=== PATIENT | female | born 1965 | race Caucasian/White ===

== ENCOUNTER 2024-09-05 10:43 | Emergency (ER) | payer BC, SELFPAY ==
[2024-09-05 10:53] VITALS: BP 158/79
[2024-09-05 11:31] VITALS: BMI 37.9
[2024-09-05 11:35] VITALS: BP 137/72
--- NOTE | 2024-09-05 11:35 | ED.GENMED ---
History of Present Illness
General
Chief Complaint: Cold/Flu/URI Symptoms
Source: patient
Time Seen by Provider: 09/05/24 11:10
History of Present Illness
History of Present Illness:
59-year-old female with past medical history of asthma, hyperlipidemia, GERD, [id number] diabetes presenting to the emergency department for evaluation at the request of her primary care provider for an acute asthma exacerbation. Patient
notes for the last 2 weeks she has been dealing with URI-like symptoms, was given a prescription for doxycycline for which she has 2 days remaining and a prednisone taper for which she only has today remaining but still notes considerable wheezing,
cough and shortness of breath. Patient denies any fevers associated with this. She notes no recent admissions or hospitalizations due to asthma. She normally notes asthma is relatively under control and normally has exacerbations with weather or
cold-like symptoms. Social history was noted for tobacco use. No other concerns presently.
Past History
Past History
ED Past Medical History: Asthma, GERD, Hypercholesterolemia and NIDDM; Negative CAD, HTN or IDDM
ED Past Surgical History: Cholecystectomy and Gynecological
Social History
Tobacco: Smoker
Alcohol: Occasional
Drug: None
Personal:
Living: with family
Employment: Employed
Family History
Family History: Early CAD (Brother with NC in his 40s, father with NC in his 60s )
Review of Systems
Review of Systems
All Other Systems: ROS reviewed and negative except as documented in HPI and ROS
Phy Exam
Physical Exam
Physical Exam:
GENERAL: Alert , in no apparent distress
EYE: conjunctiva clear
NECK: Supple, no significant adenopathy.
ENT: o/p clr, mmm.
CARDIAC: Regular rate and rhythm, no murmur
LUNGS: diffuse inspiratory and expiratory wheezing, speaking full sentences, no accessory muscle use or tachypnea
NEUROLOGICAL: Alert and oriented
SKIN: Warm and dry, skin intact.
MUSCULOSKELETAL: well perfused.
PSYCH: Normal and appropriate interaction.
Scores
Heart Failure Risk
Heart Failure Risk Score: Not Applicable
Heart Score for Chest Pain Patients
STEMI patient?: Not applicable
Withdrawal Assessment of Alcohol
Withdrawal Assessment Completed?: Not applicable
Course
Orders/Labs/Results
Orders:
Orders
09/05/24 11:23
Albuterol Nebs [Ventolin Nebules] 2.5 mg INH R NOW STA
Ipratropium/Albuterol Sulfate [Duoneb] 3 ml INH R NOW ONE
MethylPREDNISolone PF [Solu-Medrol Pf] 60 mg IV NOW STA
CR Chest - 2 Views Urgent
Comment:
Reason For Exam: 2 weeks cough, asthma
09/05/24 11:42
Basic Metabolic Panel Urgent
Complete Blood Count/With Diff Urgent
09/05/24 13:02
Albuterol Nebs [Ventolin Nebules] 2.5 mg INH R NOW STA
Abnormal Lab Results
09/05/24
11:42
MCH 31.7 H pg
(27.0-31.0)
Abs Immat Gran (auto) 0.1 H 10^3/uL
(0-0.05)
Absolute Lymphs (auto) 3.9 H 10^3/uL
(1.2-3.4)
Absolute Monos (auto) 1.0 H 10^3/uL
(0.1-0.6)
Immature Gran % 0.9 H %
(0-0.5)
Monocytes % 9.7 H %
(1.7-9.3)
BUN 20 H mg/dl
(7-17)
Creatinine 0.5 L mg/dL
(0.6-1.0)
09/05/24 11:42
09/05/24 11:42
Vital Signs
Initial and Last Documented VS:
Initial Vital Signs
Temp Pulse Resp BP Pulse Ox
98.4 F 96 18 158/79 95
09/05/24 10:53 09/05/24 10:53 09/05/24 10:53 09/05/24 10:53 09/05/24 10:53
Last Documented Vital Signs
Temp Pulse Resp BP Pulse Ox
97.6 F 83 20 145/69 97
09/05/24 14:05 09/05/24 14:05 09/05/24 14:05 09/05/24 14:05 09/05/24 14:05
MDM/Problems Addressed
Differential Diagnosis Includes:
acute asthma exacerbation, bronchitis, pneumonia, COPD, COVID, flu or other viral etiology
MDM/Problems Addressed:
59-year-old female presenting to the emergency department for evaluation of asthma exacerbation at the request of her primary care provider. Patient has been on steroid and antibiotic for the last 5 or so days with minimal improvement. She has
continued inspiratory as well as expiratory wheezing on exam here. No acute respiratory distress, no hypoxia. Will treat with nebulizer and IV dose of Solu-Medrol. Labs and chest x-ray ordered. Disposition pending.
Chronic conditions affecting care: Asthma
Acute Exacerbation and/or Progression of Chronic Illness: Asthma
*Radiology
Radiology exam reviewed: radiology read reviewed
*Pulse Oximetry
Patient hypoxic: no
*Critical Care Note
Total Time (30-74mins, 75-104mins- exclusive of procedures): Not Applicable
Patient Management
Social determinants of health affecting care: Living situation and Strong social support
Escalation/DeEscalation of care consider admission/obs:
Following first neb treatments and steroids patient did have significant improvement of inspiratory and expiratory wheezing but still had an expiratory phase wheeze. Patient states that due to her asthma and smoking she always has some semblance of
a wheeze and follows with pulmonary for this. She remains without evidence for hypoxia or respiratory distress but will treat with 1 additional neb treatment prior to discharge. Patient ultimately wishes to be discharged home as she has multiple
family coming to her house tomorrow for New Year's celebration.
Following second nebulizer treatment patient still notes feeling much better. Will give a additional 5-day course of steroid burst at 50 mg daily. I strongly encouraged the patient to follow-up with her pickle solution maker as well as smoking cessation.
Patient expressed understanding. Stable for discharge home and aware of return precautions
ED Attending Note
-
Portions of this chart may have been created with voice recognition software.� Occasional wrong word or��sound alike� substitutions may have occurred due to the inherent limitations of voice recognition software.
Discharge Plan
Departure
Patient Disposition: Home (Routine Discharge)
Date of Disposition: 09/05/24
Time of Disposition: 13:24
Patient with high blood pressure during this ER visit?: Yes
Discharge Problem:
Acute asthma exacerbation
Instructions: Asthma in adults - Discharge instructions
Prescriptions:
New
prednisone 50 mg tablet
50 mg PO DAILY Qty: 5 0RF
No Action
Ibuprofen
4 tab PRN
One A Day Weight Smart
1.5 tab DAILY
Tums
PRN
albuterol sulfate [Albuterol Sulfate HFA] 90 MCG/PUFF HFA aerosol inhaler
1 puff inhalation Q4 Qty: 1 0RF
oxycodone-acetaminophen 1 EACH tablet
1 ea PO Q4HPRN PRN (Reason: severe pain) Qty: 10 0RF
azithromycin 250 MG tablet
250 mg PO DAILY Qty: 6 0RF
ciprofloxacin-dexamethasone [Ciprodex] 7.5 ML drops,suspension
4 drp OT BID Qty: 3 0RF
clindamycin HCl 300 MG capsule
300 mg PO TID Qty: 15 0RF
Referrals:
UNKNOWN - PT DOES,NOT KNOW [Family Provider] -
Interventions
Interventions:
*Risk Screen - Suicide Last Done: 09/05/24 11:31
*General Assessment Last Done: 09/05/24 10:57
*Neglect/Abuse Screening Last Done: 09/05/24 11:31
ED- Fall Risk Assessment Last Done: 09/05/24 11:31
*ED COVID-19 Vaccine History Last Done: 09/05/24 11:31
*Nursing Disposition Last Done: 09/05/24 14:05
ED- Pulmonary Assessment Last Done: 09/05/24 11:31
Discharge Date and Time
Discharge Date/Time: 09/05/24 13:50
Print Language: SYRIAC
[2024-09-05] MEDS: VENTOLIN NEBULES 2.5 MG INH ×2 (11:41→13:05)
[2024-09-05] MEDS: SOLU-MEDROL PF 60 MG IV (11:41)
[2024-09-05] MEDS: DUONEB 3 ML INH (11:45)
[2024-09-05 11:56] LABS: % Basophils 0.4 % (0-2); % Eosinophils 2.4 % (0-6); % Immature Granulocytes 0.9 % (0-0.5); % Lymphocytes 39.2 % (20.5-51.1); % Monocytes 9.7 % (1.7-9.3); % Neutrophils 47.4 % (42.2-75.2); Absolute Eosinophils 0.2 10^3/uL (0-0.7); Absolute Immature Granulocytes 0.1 10^3/uL (0-0.05); Absolute Lymphocytes 3.9 10^3/uL (1.2-3.4); Absolute Neutrophils 4.7 10^3/uL (1.4-6.5); Hematocrit 40.6 % (37.0-47.0); Hemoglobin 13.5 g/dL (12.0-16.0); Mean Corp Hgb Conc. 33.3 g/dL (33.0-37.0); Mean Corpuscular Hgb 31.7 pg (27.0-31.0); Mean Corpuscular Volume 95.3 fL (81.0-99.0); Mean Platelet Volume 9.6 fL (7.4-10.4); Nucleated Red Blood Cells % 0 %; Platelet Count 271 10^3/uL (130-400); Red Blood Cell Count 4.26 10^6/uL (4.20-5.40); White Blood Cell Count 9.9 10^3/uL (4.8-10.8)
[2024-09-05 12:18] LABS: Blood Urea Nitrogen 20 mg/dl (7-17); Calcium 9.1 mg/dl (8.4-10.2); Carbon Dioxide 30 mmol/L (22-30); Chloride 101 mmol/L (98-107); Estimated Creatinine Clearance 102 ml/min; Glucose 89 mg/dl (70-99); Potassium 3.8 mmol/L (3.5-5.1); Sodium 138 mmol/L (135-145); eGFR > 60.00
--- NOTE | 2024-09-05 14:04 | EDRN ---
Reviewed discharge instructions with patient. Verbalized understanding. Ambulated with steady gait to the lobby.
[2024-09-05 14:05] VITALS: BP 145/69
== END 2024-09-05 13:50 | disposition home or self-care (01) ==
LOC: EMR 10:43
PROVIDERS: Physician Assistant Medical; EMERGENCY PHYSICIAN Emergency Medicine
DX: J45.901 Unspecified asthma with (acute) exacerbation (principal); R03.0 Elevated blood-pressure reading, without diagnosis of hypertension; K21.9 Gastro-esophageal reflux disease without esophagitis; E11.9 Type 2 diabetes mellitus without complications; E78.00 Pure hypercholesterolemia, unspecified; F17.200 Nicotine dependence, unspecified, uncomplicated; Z90.49 Acquired absence of other specified parts of digestive tract; Z88.1 Allergy status to other antibiotic agents; Z88.3 Allergy status to other anti-infective agents; Z91.018 Allergy to other foods; Z88.0 Allergy status to penicillin
CPT/HCPCS: 99284; 96374; 94640 ×2; 71046; 80048; 85025